=== PATIENT | female | born 1940 | race Caucasian/White ===

== ENCOUNTER → 2017-02-23 | Outpatient (CLI) | payer MEDICARE ==
--- NOTE | 2017-02-23 11:55 | RAD ---
Indication visual disturbance. Grayscale color Doppler and spectral imaging was performed. The examination was targeted to the carotid bifurcations. On the right there is no significant plaquing. The color Doppler images do not suggest significant turbulence. The common carotid waveform and velocities are normal. There is an elevated peak velocity of approximately 265 cm/s associated with the external carotid compatible with incidental stenosis in this vessel. The internal carotid waveform and velocities appear normal. The vertebral is patent and demonstrates normal directional flow. On the left there appears to be a graft at the bifurcation. Clinical correlation advised. The color Doppler images do not suggest significant turbulence. The common carotid waveform and velocities are normal. The external carotid has a normal appearance. The internal carotid waveform and velocities are borderline normal. The vertebral is patent and demonstrates normal directional flow. IMPRESSION: Graft at the left carotid bifurcation. No evidence of hemodynamically significant stenosis at either carotid bifurcation. Stenosis 0-50%. Note: Stenosis calculations for CT, MR and conventional angiography are based upon determination of the distal ICA diameter in accordance with the NASCET methodology. Stenosis calculations for doppler studies are derived from validated velocity criteria which are known to correlate with NASCET methodology of determining stenosis.
== END | disposition home or self-care (01) ==
LOC: US 10:45
PROVIDERS: ATTEND Physician Assistant Medical
DX: H53.2 Diplopia (principal); Z95.828 Presence of other vascular implants and grafts
CPT/HCPCS: 93880

== ENCOUNTER → 2017-03-10 | Outpatient (CLI) | payer MEDICARE ==
[2017-03-10 11:20] LABS: BASO % 0 % (0-3); EOS # 0.3 x10^3/uL (0.0-0.7); EOS % 4 % (0-3); HEMATOCRIT 40.6 % (36.0-47.0); HEMOGLOBIN 13.2 g/dL (12.0-15.5); LYMPH # 1.6 x10^3/uL (1.0-4.8); LYMPH % 24 % (24-48); MEAN CORPUSCULAR HEMOGLOBIN 30 pg (25-35); MEAN CORPUSCULAR HGB CONC 33 g/dL (31-37); MEAN CORPUSCULAR VOLUME 93 fL (79-100); MONO # 0.8 x10^3/uL (0.0-1.1); MONO % 12 % (0-9); NEUT # 3.9 x10^3uL (1.8-7.7); NEUT % 59 % (31-73); PLATELET COUNT 138 x10^3/uL (140-400); RED BLOOD COUNT 4.36 x10^6/uL (3.50-5.40); RED CELL DISTRIBUTION WIDTH 13.2 % (11.5-14.5); WHITE BLOOD COUNT 6.6 x10^3/uL (4.0-11.0)
[2017-03-10 11:29] LABS: ALBUMIN 3.6 g/dL (3.4-5.0); CALCIUM 9.1 mg/dL (8.5-10.1); CREATININE 1.3 mg/dL (0.6-1.0); GFR 39.7; PHOSPHORUS 4.1 mg/dL (2.6-4.7); POTASSIUM 5.4 mmol/L (3.5-5.1)
== END | disposition home or self-care (01) ==
LOC: LAB 10:01
PROVIDERS: ATTEND Internal Medicine Nephrology
DX: I12.9 Hypertensive chronic kidney disease with stage 1 through stage 4 chronic kidney disease, or unspecified chronic kidney disease (principal); N18.3 Chronic kidney disease, stage 3 (moderate); E11.21 Type 2 diabetes mellitus with diabetic nephropathy
CPT/HCPCS: 36415; 80069; 85027

== ENCOUNTER → 2017-09-09 | Outpatient (CLI) | payer MEDICARE ==
[2017-09-09 11:36] LABS: BASO % 0 % (0-3); EOS # 0.3 x10^3/uL (0.0-0.7); EOS % 4 % (0-3); HEMATOCRIT 39.7 % (36.0-47.0); HEMOGLOBIN 13.1 g/dL (12.0-15.5); LYMPH # 1.5 x10^3/uL (1.0-4.8); LYMPH % 23 % (24-48); MEAN CORPUSCULAR HEMOGLOBIN 31 pg (25-35); MEAN CORPUSCULAR HGB CONC 33 g/dL (31-37); MEAN CORPUSCULAR VOLUME 93 fL (79-100); MONO # 0.7 x10^3/uL (0.0-1.1); MONO % 11 % (0-9); NEUT % 62 % (31-73); PLATELET COUNT 157 x10^3/uL (140-400); RED BLOOD COUNT 4.27 x10^6/uL (3.50-5.40); RED CELL DISTRIBUTION WIDTH 12.7 % (11.5-14.5); WHITE BLOOD COUNT 6.5 x10^3/uL (4.0-11.0)
[2017-09-09 11:47] LABS: ALBUMIN 3.6 g/dL (3.4-5.0); CALCIUM 8.9 mg/dL (8.5-10.1); CREATININE 1.4 mg/dL (0.6-1.0); GFR 36.5; PHOSPHORUS 3.7 mg/dL (2.6-4.7); POTASSIUM 4.3 mmol/L (3.5-5.1)
[2017-09-09 21:11] LABS: CALCIUM PTH 9.4 mg/dL (8.7-10.3); CREATININE PTH 1.13 mg/dL (0.57-1.00); PTH INTACT 54 pg/mL (15-65)
== END | disposition home or self-care (01) ==
LOC: LAB 10:46
PROVIDERS: ATTEND Internal Medicine Nephrology
DX: I12.9 Hypertensive chronic kidney disease with stage 1 through stage 4 chronic kidney disease, or unspecified chronic kidney disease (principal); N18.3 Chronic kidney disease, stage 3 (moderate); E11.22 Type 2 diabetes mellitus with diabetic chronic kidney disease; E11.21 Type 2 diabetes mellitus with diabetic nephropathy; E87.5 Hyperkalemia
CPT/HCPCS: 36415; 80069; 83970; 85025

== ENCOUNTER → 2017-11-17 | Outpatient (CLI) | payer MEDICARE ==
--- NOTE | 2017-11-17 09:01 | RAD ---
Indication: Left hip pain for a few weeks. No known injury. Technique: 2 views of the left hip joint Comparison: Study from 05/09/2007. Findings: No acute fracture or dislocation. No hip joint space narrowing or productive changes. Impression: No acute findings.
--- NOTE | 2017-11-17 09:02 | RAD ---
Indication: Low back pain Technique: Multiple views of the lumbar spine Comparison: None Findings: There are 5 lumbar vertebral bodies. Lumbar spine is in normal anatomic alignment. No compression deformities. Mild multilevel intervertebral disc space narrowing noted with endplate sclerosis and small bony spurring compatible with degenerative disc disease. Mild to moderate lower lumbar spine facet arthropathy. SI joints within normal limits. Diffuse atherosclerotic disease of the abdominal aorta and bilateral iliac arteries. Impression: Multilevel mild to moderate degenerative disc disease with lower lumbar spine facet arthropathy.
== END | disposition home or self-care (01) ==
LOC: PMG 07:59
PROVIDERS: ATTEND Physician Assistant Medical
DX: M51.36 Other intervertebral disc degeneration, lumbar region (principal); I70.0 Atherosclerosis of aorta; I70.298 Other atherosclerosis of native arteries of extremities, other extremity
CPT/HCPCS: 72110; 73502

== ENCOUNTER → 2018-09-02 | Outpatient (CLI) | payer MEDICARE ==
[2018-09-02 15:51] LABS: BASO % 0 % (0-3); EOS # 0.3 x10^3/uL (0.0-0.7); EOS % 4 % (0-3); HEMATOCRIT 38.9 % (36.0-47.0); HEMOGLOBIN 12.9 g/dL (12.0-15.5); LYMPH # 2.4 x10^3/uL (1.0-4.8); LYMPH % 30 % (24-48); MEAN CORPUSCULAR HEMOGLOBIN 30 pg (25-35); MEAN CORPUSCULAR HGB CONC 33 g/dL (31-37); MEAN CORPUSCULAR VOLUME 91 fL (79-100); MONO # 0.9 x10^3/uL (0.0-1.1); MONO % 11 % (0-9); NEUT # 4.4 x10^3uL (1.8-7.7); NEUT % 55 % (31-73); PLATELET COUNT 155 x10^3/uL (140-400); RED BLOOD COUNT 4.27 x10^6/uL (3.50-5.40); RED CELL DISTRIBUTION WIDTH 13.4 % (11.5-14.5)
[2018-09-02 16:01] LABS: ALBUMIN 3.7 g/dL (3.4-5.0); CALCIUM 8.8 mg/dL (8.5-10.1); CREATININE 1.4 mg/dL (0.6-1.0); GFR 36.4; PHOSPHORUS 3.7 mg/dL (2.6-4.7); POTASSIUM 4.7 mmol/L (3.5-5.1)
[2018-09-03 03:09] LABS: CALCIUM PTH 9.2 mg/dL (8.7-10.3); CREATININE PTH 1.31 mg/dL (0.57-1.00); PTH INTACT 82 pg/mL (15-65)
== END | disposition home or self-care (01) ==
LOC: LAB 14:51
PROVIDERS: ATTEND Internal Medicine Nephrology
DX: E11.22 Type 2 diabetes mellitus with diabetic chronic kidney disease (principal); I12.9 Hypertensive chronic kidney disease with stage 1 through stage 4 chronic kidney disease, or unspecified chronic kidney disease; N18.3 Chronic kidney disease, stage 3 (moderate); D63.1 Anemia in chronic kidney disease; E11.21 Type 2 diabetes mellitus with diabetic nephropathy; R80.9 Proteinuria, unspecified
CPT/HCPCS: 36415; 80069; 82728; 83540; 83550; 83970; 85025

== ENCOUNTER 2018-10-30 03:03 | Emergency (ER) | payer MEDICARE ==
[~2018-10-30] VITALS: Ht 167.6 cm; Wt 63.5 kg
[2018-10-30] MEDS ORDERED: LIDOCAINE 2% TOPICAL JELLY 30GM TUBE. TP ONE (03:20)
[2018-10-30] MEDS ORDERED: LIDOCAINE 2% JELLY 10ML IN APPLICATOR. MM ONE (03:45)
--- NOTE | 2018-10-30 03:52 | PHYS DOC ---
Adult General Chief Complaint Chief Complaint Urinary retention HPI HPI 78 years old female presented to the emergency department with the urinary retention she stated at 10 PM she went to the bathroom she was able to urinate later on she was unable to didn't pass any urine upon arrival to the emergency Department a Griffin catheter placed and she drained 700 mL of bloody urine Review of Systems Review of Systems Constitutional: Denies fever or chills [] Eyes: Denies change in visual acuity, redness, or eye pain [] HENT: Denies nasal congestion or sore throat [] Respiratory: Denies cough or shortness of breath [] Cardiovascular: No additional information not addressed in HPI [] GI: Denies abdominal pain, nausea, vomiting, bloody stools or diarrhea [] : Denies dysuria Musculoskeletal: Denies back pain or joint pain [] Integument: Denies rash or skin lesions [] Neurologic: Denies headache, focal weakness or sensory changes [] Endocrine: Denies polyuria or polydipsia [] All other systems were reviewed and found to be within normal limits, except as documented in this note. Current Medications Current Medications Current Medications Medications (Trade) Dose Ordered Sig/Steve Start Time Stop Time Status Last Admin Dose Admin Ceftriaxone Sodium 1 gm/ Sodium Chloride 50 ml @ 100 mls/hr 1X ONCE 10/30/18 05:00 10/30/18 05:30 DC 10/30/18 04:50 100 MLS/HR Ceftriaxone Sodium (Rocephin) 1 gm STK-MED ONCE 10/30/18 04:34 10/30/18 04:36 DC Lidocaine HCl (Uro-Jet) 1 izzy 1X ONCE 10/30/18 03:45 10/30/18 03:48 DC 10/30/18 03:44 1 IZZY Lidocaine HCl (Xylocaine 2% Topical 30gm Tube) 30 izzy STK-MED ONCE 10/30/18 03:20 10/30/18 03:21 DC Sodium Chloride 50 ml @ As Directed STK-MED ONCE 10/30/18 04:34 10/30/18 04:36 DC Allergies Allergies Allergies Coded Allergies Type Severity Reaction Last Updated Verified No Known Drug Allergies 10/30/18 No Physical Exam Physical Exam Constitutional: Well developed, well nourished, no acute distress, non-toxic appearance. [] HENT: Normocephalic, atraumatic, bilateral external ears normal, oropharynx moist, no oral exudates, nose normal. [] Eyes: PERRLA, EOMI, conjunctiva normal, no discharge. [] Neck: Normal range of motion, no tenderness, supple, no stridor. [] Cardiovascular:Heart rate regular rhythm, no murmur [] Lungs & Thorax: Bilateral breath sounds clear to auscultation [] Abdomen: Bowel sounds normal, soft, no tenderness, no masses, no pulsatile masses. [] Skin: Warm, dry, no erythema, no rash. [] Back: No tenderness, no CVA tenderness. [] Extremities: No tenderness, no cyanosis, no clubbing, ROM intact, no edema. [] Neurologic: Alert and oriented X 3, normal motor function, normal sensory function, no focal deficits noted. [] Psychologic: Affect normal, judgement normal, mood normal. [] Current Patient Data Vital Signs Vital Signs Date Time Temp Pulse Resp B/P (MAP) Pulse Ox O2 Delivery O2 Flow Rate FiO2 10/30/18 03:21 97.5 76 18 97 Room Air Lab Results Laboratory Tests Test 10/30/18 03:30 10/30/18 04:15 Urine Collection Type U cath Urine Color Red Urine Clarity Cloudy Urine pH 7.0 Urine Specific [place] 1.015 Urine Protein >100 mg/dl (NEG-TRACE) Urine Glucose (UA) 250 mg/dL (NEG) Urine Ketones (Stick) 15 mg/dL (NEG) Urine Blood Large (NEG) Urine Nitrite Pos (NEG) Urine Bilirubin Neg (NEG) Urine Urobilinogen Dipstick 1 mg/dL (0.2 mg/dL) Urine Leukocyte Esterase Large (NEG) Urine RBC Tntc /HPF (0-2) Urine WBC 5-10 /HPF (0-4) Urine Squamous Epithelial Cells Occ /LPF Urine Bacteria Few /HPF (0-FEW) White Blood Count 5.8 x10^3/uL (4.0-11.0) Red Blood Count 4.17 x10^6/uL (3.50-5.40) Hemoglobin 12.5 g/dL (12.0-15.5) Hematocrit 37.9 % (36.0-47.0) Mean Corpuscular Volume 91 fL (79-100) Mean Corpuscular Hemoglobin 30 pg (25-35) Mean Corpuscular Hemoglobin Concent 33 g/dL (31-37) Red Cell Distribution Width 12.7 % (11.5-14.5) Platelet Count 149 x10^3/uL (140-400) Neutrophils (%) (Auto) 58 % (31-73) Lymphocytes (%) (Auto) 25 % (24-48) Monocytes (%) (Auto) 12 % (0-9) H Eosinophils (%) (Auto) 4 % (0-3) H Basophils (%) (Auto) 0 % (0-3) Neutrophils # (Auto) 3.4 x10^3uL (1.8-7.7) Lymphocytes # (Auto) 1.5 x10^3/uL (1.0-4.8) Monocytes # (Auto) 0.7 x10^3/uL (0.0-1.1) Eosinophils # (Auto) 0.2 x10^3/uL (0.0-0.7) Basophils # (Auto) 0.0 x10^3/uL (0.0-0.2) Prothrombin Time 10.9 SEC (9.4-11.4) Prothrombin Time INR 1.1 (0.9-1.1) PTT 25 SEC (23-33) Sodium Level 143 mmol/L (136-145) Potassium Level 4.2 mmol/L (3.5-5.1) Chloride Level 107 mmol/L (98-107) Carbon Dioxide Level 27 mmol/L (21-32) Anion Gap 9 (6-14) Blood Urea Nitrogen 28 mg/dL (7-20) H Creatinine 1.3 mg/dL (0.6-1.0) H Estimated GFR (Cockcroft-Gault) 39.6 BUN/Creatinine Ratio 22 (6-20) H Glucose Level 131 mg/dL (70-99) H Calcium Level 8.9 mg/dL (8.5-10.1) Total Bilirubin 0.6 mg/dL (0.2-1.0) Aspartate Amino Transferase (AST) 24 U/L (15-37) Alanine Aminotransferase (ALT) 30 U/L (14-59) Alkaline Phosphatase 67 U/L (46-116) Total Protein 6.7 g/dL (6.4-8.2) Albumin 3.4 g/dL (3.4-5.0) Albumin/Globulin Ratio 1.0 (1.0-1.7) EKG EKG [] Radiology/Procedures Radiology/Procedures [] Course & Med Decision Making Course & Med Decision Making Pertinent Labs and Imaging studies reviewed. (See chart for details) [] Final Impression Final Impression [] Problems: (1) Hematuria Qualifiers: Qualified Codes: R31.9 - Hematuria, unspecified (2) UTI (urinary tract infection) Dragon Disclaimer Dragon Disclaimer This electronic medical record was generated, in whole or in part, using a voice recognition dictation system. DEVANTE DICKINSON MD Oct 30, 2018 03:52
[2018-10-30 04:03] LABS: CLARITY,URINE CLOUDY; COLOR,URINE RED
[2018-10-30 04:04] LABS: BACTERIA,URINE FEW /HPF (0-FEW); BILIRUBIN,URINE NEG (NEG); GLUCOSE,URINE 250 mg/dL (NEG); NITRITE,URINE POS (NEG); RBC,URINE TNTC /HPF (0-2); SQUAMOUS EPITHELIAL CELL,UR OCC /LPF; UROBILINOGEN,URINE 1 mg/dL (0.2 mg/dL)
[2018-10-30] MEDS ORDERED: IV NORMAL SALINE 50ML 50 ML ONE (04:34)
[2018-10-30] MEDS ORDERED: cefTRIAXone SODIUM 1 GM VIAL IV ONE (04:34)
[2018-10-30 04:40] LABS: ALBUMIN 3.4 g/dL (3.4-5.0); CALCIUM 8.9 mg/dL (8.5-10.1); CREATININE 1.3 mg/dL (0.6-1.0); GFR 39.6; POTASSIUM 4.2 mmol/L (3.5-5.1); TOTAL BILIRUBIN 0.6 mg/dL (0.2-1.0); TOTAL PROTEIN 6.7 g/dL (6.4-8.2)
[2018-10-30 04:53] LABS: BASO % 0 % (0-3); EOS # 0.2 x10^3/uL (0.0-0.7); EOS % 4 % (0-3); HEMATOCRIT 37.9 % (36.0-47.0); HEMOGLOBIN 12.5 g/dL (12.0-15.5); LYMPH # 1.5 x10^3/uL (1.0-4.8); LYMPH % 25 % (24-48); MEAN CORPUSCULAR HEMOGLOBIN 30 pg (25-35); MEAN CORPUSCULAR HGB CONC 33 g/dL (31-37); MEAN CORPUSCULAR VOLUME 91 fL (79-100); MONO # 0.7 x10^3/uL (0.0-1.1); MONO % 12 % (0-9); NEUT # 3.4 x10^3uL (1.8-7.7); NEUT % 58 % (31-73); PLATELET COUNT 149 x10^3/uL (140-400); RED BLOOD COUNT 4.17 x10^6/uL (3.50-5.40); RED CELL DISTRIBUTION WIDTH 12.7 % (11.5-14.5); WHITE BLOOD COUNT 5.8 x10^3/uL (4.0-11.0)
[2018-10-30] MEDS ORDERED: IV NORMAL SALINE 1,000ML 1,000 ML IV ONE (05:00)
--- NOTE | 2018-10-30 05:17 | RAD ---
PQRS Compliance Statement: One or more of the following individualized dose reduction techniques were utilized for this examination: 1. Automated exposure control 2. Adjustment of the mA and/or kV according to patient size 3. Use of iterative reconstruction technique CT ABDOMEN PELVIS WO CONTRAST Clinical Indication: Hematuria since 9pm last night. Difficulty urinating. Hx hysterectomy Comparison: None. Technique: Helical CT imaging of the abdomen and pelvis is performed without IV or oral contrast. Findings: There is mild atelectasis or scarring in the lung bases. Cardiac size normal. Calcified granulomas in the spleen. Severe atherosclerotic calcification of the abdominal aorta, no aneurysm. Liver, gallbladder, pancreas, and adrenal glands are normal. There is a 1.9 cm right upper pole renal cyst. Tiny calculus versus vascular calcification in the lower pole of the left kidney. No hydronephrosis. No ureteral calculus. Stomach unremarkable. No dilated small bowel. Moderate distal colon diverticulosis. No colon wall thickening. The appendix is normal. No abdominal adenopathy or free fluid. There is Griffin catheter in urinary bladder which is decompressed. Uterus unremarkable. No pelvic free fluid. Small old compression deformity at the superior endplate of L4. Vacuum disc phenomenon L3/L4. IMPRESSION: 1. Decompressed urinary bladder contains Griffin catheter. Evaluation is limited. 2. There is no obstructive uropathy. 3. Moderate distal colon diverticulosis without diverticulitis. Electronically signed by: Jesus Alberto Contreras MD (10/30/2018 5:13 AM) [facility]
[2018-10-30] MEDS ORDERED: CIPR500T94 PO (06:13)
[2018-10-30 06:20] VITALS: BP 135/76
[2018-10-31] MEDS ORDERED: FLUC150T PO (16:40)
== END 2018-10-30 06:26 | disposition home or self-care (01) ==
LOC: ER 03:03
DX: N39.0 Urinary tract infection, site not specified (principal); R31.9 Hematuria, unspecified
CPT/HCPCS: 36415; 51702; 74176; 80053; 81001; 85025; 85610; 85730; 87086; 96365; 99284; J0696; J7030

== ENCOUNTER 2018-10-31 15:52 | Emergency (ER) | payer MEDICARE ==
[~2018-10-31] VITALS: Ht 167.6 cm; Wt 63.5 kg
[~2018-10-31 15:52] MED LIST: CIPR500T94 PO
[2018-10-31] MEDS ORDERED: FLUC150T PO (16:40)
--- NOTE | 2018-10-31 16:40 | PHYS DOC ---
Past History Past Medical History: Diabetes Past Surgical History: Alcohol Use: None Drug Use: None Adult General Chief Complaint Chief Complaint: URINE CATHETER PROBLEM [facility] HPI Patient is a 78-year-old female who presents with complaint of inability to drain her bladder. Patient was seen last night and diagnosed with urinary tract infection. Patient had a Griffin catheter placed because she was having urinary retention at that time and states that her bladder had been emptying her of the night but today she stopped seeing urine in the bag. She is now complaining of a lot of suprapubic discomfort. She denies any fever, nausea or vomiting. Review of Systems Review of Systems Constitutional: Denies fever or chills [] Respiratory: Denies cough or shortness of breath [] Cardiovascular: No additional information not addressed in HPI [] GI: Positive suprapubic pain without nausea or vomiting [] : As of urinary retention[] Allergies Allergies Allergies Coded Allergies Type Severity Reaction Last Updated Verified No Known Drug Allergies 10/30/18 No Physical Exam Physical Exam Constitutional: Well developed, well nourished, no acute distress, non-toxic appearance. [] Neck: Normal range of motion, no tenderness, supple, no stridor. [] Cardiovascular: Regular rate and rhythm, no murmur [] Lungs & Thorax: Bilateral breath sounds clear to auscultation [] Abdomen: Bowel sounds normal, soft, no tenderness. [] EKG EKG [] Radiology/Procedures Radiology/Procedures [] Course & Med Decision Making Course & Med Decision Making Pertinent Labs and Imaging studies reviewed. (See chart for details) Patient moved to room upon arrival was evaluated by ER nurse and nurse had drained the balloon at the end of the catheter and removed catheter with plan to reinsert however patient was able to urinate without difficulty at that point. Patient has urinated nearly a liter of clear yellow urine without difficulty since catheter removed and patient requesting catheter not be inserted. Dragon Disclaimer Dragon Disclaimer This electronic medical record was generated, in whole or in part, using a voice recognition dictation system. Departure Departure: Impression: Primary Impression: Obstructed Griffin catheter Disposition: 01 HOME, SELF-CARE Condition: STABLE Referrals: HASEEB BELTRAN (PCP) Patient Instructions: Urinary Tract Infection Scripts Fluconazole (DIFLUCAN) 150 Mg Tablet 1 TAB PO ONCE for infection, #1 TAB 1 Refill Prov: HARDEEP MAO Jr. DO 10/31/18 Problem Qualifiers Primary Impression: Obstructed Griffin catheter Encounter type: initial encounter Qualified Codes: T83.091A - Other mechanical complication of indwelling urethral catheter, initial encounter HARDEEP MAO Jr. DO Oct 31, 2018 16:40
[2018-10-31 16:55] VITALS: BP 150/72
== END 2018-10-31 16:55 | disposition home or self-care (01) ==
LOC: ER 15:52
DX: T83.091A Other mechanical complication of indwelling urethral catheter, initial encounter (principal); R33.9 Retention of urine, unspecified
CPT/HCPCS: 51701; 99283

== ENCOUNTER → 2019-02-25 | Outpatient (CLI) | payer MEDICARE ==
[~2019-02-25] MED LIST changes: +FLUC150T PO
[2019-02-25 11:04] LABS: BASO % 0 % (0-3); EOS # 0.2 x10^3/uL (0.0-0.7); EOS % 3 % (0-3); HEMATOCRIT 37.1 % (36.0-47.0); HEMOGLOBIN 12.1 g/dL (12.0-15.5); LYMPH # 1.3 x10^3/uL (1.0-4.8); LYMPH % 26 % (24-48); MEAN CORPUSCULAR HEMOGLOBIN 30 pg (25-35); MEAN CORPUSCULAR HGB CONC 33 g/dL (31-37); MEAN CORPUSCULAR VOLUME 91 fL (79-100); MONO # 0.6 x10^3/uL (0.0-1.1); MONO % 11 % (0-9); NEUT % 60 % (31-73); PLATELET COUNT 147 x10^3/uL (140-400); RED BLOOD COUNT 4.06 x10^6/uL (3.50-5.40); WHITE BLOOD COUNT 5.1 x10^3/uL (4.0-11.0)
[2019-02-25 11:11] LABS: ALBUMIN 3.4 g/dL (3.4-5.0); CALCIUM 8.7 mg/dL (8.5-10.1); CREATININE 1.4 mg/dL (0.6-1.0); GFR 36.3; MAGNESIUM 2.1 mg/dL (1.8-2.4); PHOSPHORUS 4.9 mg/dL (2.6-4.7); POTASSIUM 5.3 mmol/L (3.5-5.1)
[2019-02-25 17:07] LABS: CALCIUM PTH 8.8 mg/dL (8.7-10.3); CREATININE PTH 1.34 mg/dL (0.57-1.00); PTH INTACT 36 pg/mL (15-65); TOTAL SERUM CREATININE 1.34 mg/dL (0.57-1.00); TOTAL URINE CREATININE 37.5 mg/dL (Not Estab.); UR PROTEIN 22.8 mg/dL (Not Estab.)
== END | disposition home or self-care (01) ==
LOC: LAB 09:46
PROVIDERS: ATTEND Nurse Practitioner Family
DX: I12.9 Hypertensive chronic kidney disease with stage 1 through stage 4 chronic kidney disease, or unspecified chronic kidney disease (principal); E11.22 Type 2 diabetes mellitus with diabetic chronic kidney disease; N18.3 Chronic kidney disease, stage 3 (moderate); E11.21 Type 2 diabetes mellitus with diabetic nephropathy; D63.1 Anemia in chronic kidney disease; R80.9 Proteinuria, unspecified
CPT/HCPCS: 36415; 80069; 82575; 83735; 83970; 84156; 85025

== ENCOUNTER → 2019-04-28 | Outpatient (CLI) | payer MEDICARE ==
--- NOTE | 2019-04-28 16:58 | RAD ---
Examination: Ultrasound kidneys HISTORY: History of urinary tract infection, hematuria COMPARISON: None available. FINDINGS: The right kidney measures 8.8 x 4.3 x 3.8 cm. The left kidney measures 10.8 x 5.2 x 5.0 cm. There is a 1.9 cm cyst identified in the left kidney. No evidence of hydronephrosis. The urinary bladder is mildly distended. Within the urinary bladder , there is a 2.6 x 2.4 x 2.4 cm solid-appearing echogenicity abutting the wall of the posterior urinary bladder with vascular flow within suspicious for a mass. IMPRESSION: 1. 2.6 cm mass identified in the urinary bladder suspicious for neoplasm. Recommend cystoscopic evaluation and urological consult. 2. 1.9 cm left renal cyst. Electronically signed by: Daniel Zhang MD (04/28/2019 4:55 PM) [place] [id number]
== END | disposition home or self-care (01) ==
LOC: US 10:48
PROVIDERS: ATTEND Physician Assistant Medical
DX: N28.1 Cyst of kidney, acquired (principal); N32.89 Other specified disorders of bladder
CPT/HCPCS: 76770

== ENCOUNTER → 2019-05-19 | Outpatient (CLI) | payer MEDICARE ==
[~2019-05-19] MED LIST changes: +IOHEXOL 300 MG/ML 75 ML VIAL. IV ONE
[2019-05-19 09:34] LABS: CREATININE 1.3 mg/dL (0.6-1.0); GFR 39.5
--- NOTE | 2019-05-19 17:04 | RAD ---
CT scan of the abdomen and pelvis without and with contrast 05/19/2019 CLINICAL HISTORY: Bladder cancer. TECHNIQUE: Unenhanced, contiguous, 3 mm axial sections were obtained through the abdomen and pelvis. After the intravenous administration of 60 cc of Omnipaque 300, contiguous, 5 mm axial sections were obtained through the abdomen and pelvis. 5 minute delayed axial images through the abdomen and pelvis were obtained. One or more of the following individualized dose reduction techniques were utilized for this study: 1. Automated exposure control. 2. Adjustment of the mA and/or kV according to patient size. 3. Use of iterative reconstruction technique. FINDINGS: Comparison is made to the patient's renal ultrasound dated 04/28/2019. Additional comparison is made to the patient's CT scan of the abdomen and pelvis dated 10/30/2018. The unenhanced images demonstrate no renal or ureteral calculus. No bladder calculus is seen. Images through the lung bases demonstrate mild cardiomegaly. Minimal dependent subsegmental atelectasis is seen bilaterally. The liver parenchyma has a decreased attenuation consistent with mild fatty infiltration. No focal abnormality of the liver is seen. Calcified granulomas are seen involving the spleen. The pancreas and adrenal glands are within normal limits. The right kidney is within normal limits. A 1.9 cm rounded low-attenuation lesion is seen involving the superior pole of the left kidney. This corresponds to a cyst seen on ultrasound. Moderate atherosclerotic calcification of the abdominal aorta and its branches is seen. The abdominal aorta tapers normally. The gallbladder is contracted. No free fluid or free air is seen within the abdomen. There is no evidence of bowel obstruction. No retroperitoneal lymphadenopathy is noted. The appendix is well-visualized and is within normal limits. Images through the pelvis demonstrate the urinary bladder to be contracted. The urinary bladder has a a diffusely thickened wall. Irregularity is seen involving the superior aspect of the urinary bladder. Fluid and small collections of extraluminal air are seen immediately superior to the urinary bladder anterior to the peritoneum which measures 6.1 x 4.6 x 1.8 cm in size. This is presumably related to a recent surgical procedure involving the urinary bladder. Clinical correlation is recommended. The patient's bladder cancer is not definitely visualized. No extravasation of contrast is seen on the delayed images through the bladder. No free fluid is seen within the pelvis. Multiple diverticula are seen involving the sigmoid colon. No inflammatory changes are seen adjacent fat. No pelvic or inguinal lymphadenopathy is seen. Degenerative changes are seen involving lower thoracic and throughout the lumbar spine along with both hips. IMPRESSION: 1. Irregularity of the superior aspect of the urinary bladder is seen. Fluid and small collections of air are seen extending superiorly from the urinary bladder as discussed above. These findings are presumably related to the recent surgical procedure. Clinical correlation is recommended. No extravasation of contrast from the urinary bladder is seen. 2. There is no CT evidence of metastatic disease involving the abdomen and pelvis. Electronically signed by: Emmanuel Lemons MD (05/19/2019 5:01 PM) [place] [id number]
== END | disposition home or self-care (01) ==
LOC: CT 08:35
PROVIDERS: ATTEND Urology
DX: K57.30 Diverticulosis of large intestine without perforation or abscess without bleeding (principal); J98.11 Atelectasis; K76.0 Fatty (change of) liver, not elsewhere classified; N28.9 Disorder of kidney and ureter, unspecified; I70.0 Atherosclerosis of aorta; C67.0 Malignant neoplasm of trigone of bladder
CPT/HCPCS: 36415; 74178; 82565; Q9967

== ENCOUNTER → 2019-09-02 | Outpatient (CLI) | payer MEDICARE ==
[~2019-09-02] MED LIST changes: -IOHEXOL 300 MG/ML 75 ML VIAL. IV ONE
[2019-09-02 11:09] LABS: BASO % 0 % (0-3); EOS # 0.2 x10^3/uL (0.0-0.7); EOS % 4 % (0-3); HEMOGLOBIN 12.6 g/dL (12.0-15.5); LYMPH # 1.4 x10^3/uL (1.0-4.8); LYMPH % 25 % (24-48); MEAN CORPUSCULAR HEMOGLOBIN 30 pg (25-35); MEAN CORPUSCULAR HGB CONC 32 g/dL (31-37); MEAN CORPUSCULAR VOLUME 91 fL (79-100); MONO # 0.7 x10^3/uL (0.0-1.1); MONO % 12 % (0-9); NEUT # 3.3 x10^3uL (1.8-7.7); NEUT % 59 % (31-73); PLATELET COUNT 125 x10^3/uL (140-400); RED BLOOD COUNT 4.28 x10^6/uL (3.50-5.40); RED CELL DISTRIBUTION WIDTH 13.2 % (11.5-14.5); WHITE BLOOD COUNT 5.6 x10^3/uL (4.0-11.0)
[2019-09-02 11:15] LABS: ALBUMIN 3.4 g/dL (3.4-5.0); CALCIUM 8.9 mg/dL (8.5-10.1); CREATININE 1.2 mg/dL (0.6-1.0); GFR 43.3; PHOSPHORUS 4.1 mg/dL (2.6-4.7); POTASSIUM 4.8 mmol/L (3.5-5.1)
[2019-09-03 00:11] LABS: CALCIUM PTH 9.1 mg/dL (8.7-10.3); CREATININE PTH 0.95 mg/dL (0.57-1.00); PTH INTACT 38 pg/mL (15-65)
== END | disposition home or self-care (01) ==
LOC: LAB 10:16
PROVIDERS: ATTEND Internal Medicine Nephrology
DX: I12.9 Hypertensive chronic kidney disease with stage 1 through stage 4 chronic kidney disease, or unspecified chronic kidney disease (principal); E11.22 Type 2 diabetes mellitus with diabetic chronic kidney disease; E11.21 Type 2 diabetes mellitus with diabetic nephropathy; N18.3 Chronic kidney disease, stage 3 (moderate); D63.1 Anemia in chronic kidney disease; R80.9 Proteinuria, unspecified
CPT/HCPCS: 36415; 80069; 83540; 83550; 83970; 85025

== ENCOUNTER → 2019-11-16 | Outpatient (CLI) | payer MEDICARE ==
--- NOTE | 2019-11-16 09:12 | RAD ---
EXAM: Left lower extremity venous Doppler sonogram. HISTORY: Pain and swelling. TECHNIQUE: Yang scale and color Doppler sonographic evaluation of the left lower extremity veins with spectral waveform analysis was performed. FINDINGS: There is normal color flow, normal compressibility and there are normal spectral waveforms in the common femoral, superficial femoral, popliteal, posterior tibial and greater saphenous veins. There is a popliteal cyst measuring 5.0 x 1.1 x 4.0 cm. IMPRESSION: 1. No Doppler evidence of lower extremity deep venous thrombosis. 2. 5.0 cm left Leary's cyst. Electronically signed by: Kenyatta Bangura MD (11/16/2019 9:09 AM) [place] [id number]
== END | disposition home or self-care (01) ==
LOC: US 07:57
PROVIDERS: ATTEND Physician Assistant Medical
DX: M71.22 Synovial cyst of popliteal space [Baker], left knee (principal); M79.652 Pain in left thigh
CPT/HCPCS: 93971

== ENCOUNTER → 2020-01-20 | Outpatient (CLI) | payer MEDICARE ==
[2020-01-20 13:19] LABS: BASO % 0 % (0-3); EOS # 0.2 x10^3/uL (0.0-0.7); EOS % 4 % (0-3); HEMATOCRIT 38.6 % (36.0-47.0); HEMOGLOBIN 12.5 g/dL (12.0-15.5); LYMPH # 1.7 x10^3/uL (1.0-4.8); LYMPH % 28 % (24-48); MEAN CORPUSCULAR HEMOGLOBIN 29 pg (25-35); MEAN CORPUSCULAR HGB CONC 32 g/dL (31-37); MEAN CORPUSCULAR VOLUME 91 fL (79-100); MONO # 0.8 x10^3/uL (0.0-1.1); MONO % 13 % (0-9); NEUT # 3.5 x10^3uL (1.8-7.7); NEUT % 56 % (31-73); PLATELET COUNT 125 x10^3/uL (140-400); RED BLOOD COUNT 4.24 x10^6/uL (3.50-5.40); RED CELL DISTRIBUTION WIDTH 13.3 % (11.5-14.5); WHITE BLOOD COUNT 6.3 x10^3/uL (4.0-11.0)
--- NOTE | 2020-01-20 13:36 | EKG ---
[address] [address] Test Date: 2020-01-20 Test Time: 12:28:22 Pat Name: EDEN SALEH Department: Room: Gender: F [employer] Floor Service Worker: : 1940 Requested By: STAFF NON Order Number: [id number] Reading MD: Measurements Intervals [place] Rate: 71 P: 39 DE: 142 QRS: -36 QRSD: 124 T: 71 QT: 430 QTc: 467 Interpretive Statements SINUS RHYTHM ABNORMAL LEFT AXIS DEVIATION QRS(T) CONTOUR ABNORMALITY CONSISTENT WITH ANTEROSEPTAL INFARCT AGE UNDETERMINED T ABNORMALITY IN HIGH LATERAL LEADS ABNORMAL ECG RI6.01 No previous ECG available for comparison
== END | disposition home or self-care (01) ==
LOC: EKG 12:07
PROVIDERS: ATTEND Anesthesiology
DX: Z01.818 Encounter for other preprocedural examination (principal); R94.31 Abnormal electrocardiogram [ECG] [EKG]
CPT/HCPCS: 36415; 85025; 93005

== ENCOUNTER → 2020-03-08 | Outpatient (CLI) | payer MEDICARE | END | disposition home or self-care (01) | LOC: LAB 11:02 | PROVIDERS: ATTEND Internal Medicine Nephrology | DX: N18.3 Chronic kidney disease, stage 3 (moderate) (principal) | CPT/HCPCS: 36415; 84132 ==

== ENCOUNTER → 2020-03-08 | Outpatient (CLI) | payer MEDICARE ==
[2020-03-08 12:00] LABS: ALBUMIN 3.1 g/dL (3.4-5.0); ALBUMIN/GLOBULIN RATIO 0.9 (1.0-1.7); CALCIUM 8.6 mg/dL (8.5-10.1); CREATININE 1.9 mg/dL (0.6-1.0); GFR 25.4; POTASSIUM 5.5 mmol/L (3.5-5.1); TOTAL BILIRUBIN 0.6 mg/dL (0.2-1.0); TOTAL PROTEIN 6.7 g/dL (6.4-8.2)
== END | disposition home or self-care (01) ==
LOC: LAB 10:52
PROVIDERS: ATTEND Nurse Practitioner
DX: E78.00 Pure hypercholesterolemia, unspecified (principal)
CPT/HCPCS: 36415; 80053; 80061

== ENCOUNTER → 2020-03-19 | Outpatient (CLI) | payer MEDICARE ==
[2020-03-19 14:58] LABS: BASO % 0 % (0-3); EOS # 0.1 x10^3/uL (0.0-0.7); EOS % 3 % (0-3); HEMATOCRIT 35.5 % (36.0-47.0); HEMOGLOBIN 11.3 g/dL (12.0-15.5); LYMPH # 0.9 x10^3/uL (1.0-4.8); LYMPH % 34 % (24-48); MEAN CORPUSCULAR HEMOGLOBIN 29 pg (25-35); MEAN CORPUSCULAR HGB CONC 32 g/dL (31-37); MEAN CORPUSCULAR VOLUME 91 fL (79-100); MONO # 0.1 x10^3/uL (0.0-1.1); MONO % 2 % (0-9); NEUT # 1.6 x10^3uL (1.8-7.7); NEUT % 61 % (31-73); PLATELET COUNT 91 x10^3/uL (140-400); RED BLOOD COUNT 3.92 x10^6/uL (3.50-5.40); RED CELL DISTRIBUTION WIDTH 13.6 % (11.5-14.5); WHITE BLOOD COUNT 2.6 x10^3/uL (4.0-11.0)
[2020-03-19 15:02] LABS: ALBUMIN 3.1 g/dL (3.4-5.0); CALCIUM 8.4 mg/dL (8.5-10.1); CREATININE 1.8 mg/dL (0.6-1.0); GFR 27.1; PHOSPHORUS 3.8 mg/dL (2.6-4.7); POTASSIUM 4.6 mmol/L (3.5-5.1)
[2020-03-20 08:08] LABS: CALCIUM PTH 8.3 mg/dL (8.7-10.3); PTH INTACT 47 pg/mL (15-65)
[2020-03-20 11:07] LABS: TOTAL SERUM CREATININE 1.68 mg/dL (0.57-1.00); TOTAL URINE CREATININE 30.7 mg/dL (Not Estab.)
== END | disposition home or self-care (01) ==
LOC: LAB 14:02
PROVIDERS: ATTEND Nurse Practitioner Adult Health
DX: I12.9 Hypertensive chronic kidney disease with stage 1 through stage 4 chronic kidney disease, or unspecified chronic kidney disease (principal); E11.22 Type 2 diabetes mellitus with diabetic chronic kidney disease; D63.1 Anemia in chronic kidney disease; N18.3 Chronic kidney disease, stage 3 (moderate); E11.21 Type 2 diabetes mellitus with diabetic nephropathy; R80.9 Proteinuria, unspecified
CPT/HCPCS: 36415; 80069; 82306; 82575; 82728; 83540; 83550; 83970; 84156; 85025

== ENCOUNTER → 2020-06-18 | Outpatient (CLI) | payer MEDICARE ==
[2020-06-18 10:46] LABS: BASO % 0 % (0-3); EOS # 0.1 x10^3/uL (0.0-0.7); EOS % 1 % (0-3); HEMOGLOBIN 12.6 g/dL (12.0-15.5); LYMPH # 1.5 x10^3/uL (1.0-4.8); LYMPH % 19 % (24-48); MEAN CORPUSCULAR HEMOGLOBIN 32 pg (25-35); MEAN CORPUSCULAR HGB CONC 32 g/dL (31-37); MEAN CORPUSCULAR VOLUME 99 fL (79-100); MONO # 0.8 x10^3/uL (0.0-1.1); MONO % 10 % (0-9); NEUT # 5.5 x10^3uL (1.8-7.7); NEUT % 69 % (31-73); PLATELET COUNT 140 x10^3/uL (140-400); RED BLOOD COUNT 3.96 x10^6/uL (3.50-5.40); RED CELL DISTRIBUTION WIDTH 19.3 % (11.5-14.5)
[2020-06-18 11:03] LABS: ALBUMIN 3.6 g/dL (3.4-5.0); CALCIUM 9.2 mg/dL (8.5-10.1); CREATININE 1.4 mg/dL (0.6-1.0); GFR 36.2; PHOSPHORUS 4.3 mg/dL (2.6-4.7)
[2020-06-18 21:06] LABS: CALCIUM PTH 9.4 mg/dL (8.7-10.3); PTH INTACT 48 pg/mL (15-65)
== END | disposition home or self-care (01) ==
LOC: LAB 10:09
PROVIDERS: ATTEND Internal Medicine Nephrology
DX: C67.9 Malignant neoplasm of bladder, unspecified (principal); D63.1 Anemia in chronic kidney disease; I12.9 Hypertensive chronic kidney disease with stage 1 through stage 4 chronic kidney disease, or unspecified chronic kidney disease; N18.3 Chronic kidney disease, stage 3 (moderate); E11.22 Type 2 diabetes mellitus with diabetic chronic kidney disease; E11.21 Type 2 diabetes mellitus with diabetic nephropathy
CPT/HCPCS: 36415; 80069; 83540; 83550; 83970; 85025

== ENCOUNTER → 2020-09-17 | Outpatient (CLI) | payer MEDICARE ==
--- NOTE | 2020-09-17 16:28 | RAD ---
Chest radiograph 09/17/2020 12:00 AM INDICATION: Cough COMPARISON: 10/13/2016 TECHNIQUE: Frontal and lateral views of the chest are provided. FINDINGS: The cardiomediastinal silhouette is within normal limits. Right chest wall infusion port catheter is identified with the distal tip projecting over the cavoatrial junction. Pulmonary emphysematous changes are suspected. Right apical pleural parenchymal scarring is noted. Mild subpleural interstitial changes are identified at the lung bases, left greater than right. No focal consolidative change. No pleural effusions, pulmonary vascular congestion or pneumothorax. No significant osseous abnormality is identified. IMPRESSION: COPD changes without acute cardiopulmonary process. Electronically signed by: Rose Shore MD (09/17/2020 4:25 PM) [id number]
== END ==
LOC: PMG 11:30
PROVIDERS: ATTEND Physician Assistant Medical
DX: J44.9 Chronic obstructive pulmonary disease, unspecified (principal); J98.4 Other disorders of lung
CPT/HCPCS: 71046

== ENCOUNTER → 2020-10-17 | Outpatient (CLI) | payer MEDICARE ==
--- NOTE | 2020-10-17 14:14 | RAD ---
Exam: CT abdomen/pelvis without intravenous contrast Indication: Abdominal pain Comparison: CT abdomen pelvis 01/19/2020 Technique: Helical CT imaging performed of the abdomen and pelvis without the use of intravenous contrast. Sagittal and coronal reformats were obtained. One or more of the following individualized dose reduction techniques were utilized for this examination: 1. Automated exposure control 2. Adjustment of the mA and/or kV according to patient size 3. Use of iterative reconstruction technique. Findings: Inherently limited evaluation without intravenous contrast. Lower chest: There is septal thickening in the lung bases. Heart is normal in size. The tip of a central venous catheter is seen in the right atrium. Liver: Unremarkable. Gallbladder/Biliary Tree: Unremarkable. Pancreas: Unremarkable. Spleen: There are calcified splenic granulomas. Adrenal Glands: Normal. Kidneys/Ureters/Bladder: There is a 1.7 cm simple cyst in the superior left renal pole. No hydronephrosis. There are surgical changes of cystectomy. Reproductive Organs: Uterus and ovaries are surgically absent. Stomach, small bowel, and colon: Mild circumferential wall thickening in the gastric antrum, nonspecific. No small bowel obstruction. There is sigmoid diverticulosis. Large volume stool. There are surgical changes of small bowel and an ileostomy. Vasculature: Severe calcified aortoiliac atherosclerosis. Lymph Nodes: There are enlarged external iliac chain and inguinal lymph nodes bilaterally. Peritoneum and retroperitoneum: Gas and fluid collection in the anterior peritoneum, difficult to measure. Bones and soft tissue: There is septic arthritis of the pubic symphysis with new bony erosions since 01/19/2020. There is a 3.1 x 1.9 x 2.7 cm gas and fluid collection extending anteriorly from the pubic symphysis and gas and fluid extending into the anterior perineum. Impression: 1. Septic arthritis of the pubic symphysis with 3.1 x 1.9 x 2.7 cm gas and fluid collection extending anteriorly from the joint, and gas and fluid collection extending into the anterior perineum. Evaluation is limited by lack of IV contrast. 2. Surgical changes of cystectomy, hysterectomy, and oophorectomy. Critical results discussed by Dr. Álvarez with Kenyatta Juarez, medical customer service representative for Dr. Fela manning at 1:50 PM on 10/17/2020. Electronically signed by: Ciarra Álvarez MD (10/17/2020 2:11 PM) [place] [id number]
== END ==
LOC: CT 09:37
PROVIDERS: ATTEND Physician Assistant Medical
DX: K57.30 Diverticulosis of large intestine without perforation or abscess without bleeding (principal); M00.9 Pyogenic arthritis, unspecified
CPT/HCPCS: 74176

== ENCOUNTER → 2020-12-05 | Outpatient (CLI) | payer MEDICARE ==
--- NOTE | 2020-12-05 15:35 | RAD ---
Exam: CT abdomen/pelvis without intravenous contrast Indication: Bladder cancer Comparison: CT abdomen pelvis 10/17/2020 Technique: Helical CT imaging performed of the abdomen and without contrast. Sagittal and coronal ref ormats were obtained. One or more of the following individualized dose reduction techniques were utilized for this examinat ion: 1. Automated exposure control 2. Adjustment of the mA and/or kV according to patient size 3. Use of iterative reconstruction technique. Findings: Lower chest: There are new small bilateral pleural effusions and increased septal thickening in the l radames bases. The heart is normal in size. Liver: Unremarkable. Gallbladder/Biliary Tree: Cholelithiasis. Pancreas: Normal. Spleen: No splenomegaly. There are calcified splenic granulomas. Adrenal Glands: Normal. Kidneys/Ureters/Bladder: Kidneys are normal in size. Is approximately 2 cm simple cyst in the superio r left renal pole is unchanged. No hydronephrosis or nephrolithiasis. There are surgical changes of c ystectomy and ileal conduit formation. Reproductive Organs: Uterus and ovaries are surgically absent. Stomach, small bowel, and colon: Stomach is normal. Surgical changes of the small bowel. No small bow el obstruction. There is sigmoid diverticulosis without acute diverticulitis. Vasculature: No abdominal aortic aneurysm. There is severe calcified aortoiliac atherosclerosis. Lymph Nodes: Unchanged bilateral external iliac chain lymph nodes. Prominent bilateral inguinal lymph nodes. Peritoneum and retroperitoneum: Trace stranding in the pelvis. No ascites. No free air. Bones: Erosions of the pubic symphysis are unchanged. The gas and fluid collection extending from the pubic symphysis has resolved or near completely resolved. There are a few residual foci of gas but n o drainable collection. There is residual soft tissue thickening anterior inferior to the pubic symph ysis.. L4 compression fracture with mild height loss and no retropulsion of cortex is unchanged. Impression: 1. Resolution of gas and fluid collection extending from the pubic symphysis. There is a tiny residu al focus of gas just anterior inferior to the pubic symphysis but no drainable fluid collection. 2. New small pleural effusions and septal thickening in the lung bases suspicious for mild pulmonary edema. Electronically signed by: Ciarra Álvarez MD (12/05/2020 3:32 PM) [id number]
== END ==
LOC: CT 10:09
PROVIDERS: ATTEND Urology
DX: K57.30 Diverticulosis of large intestine without perforation or abscess without bleeding (principal); J90 Pleural effusion, not elsewhere classified; D73.89 Other diseases of spleen; Z85.51 Personal history of malignant neoplasm of bladder
CPT/HCPCS: 74176

== ENCOUNTER → 2021-09-25 | Outpatient (CLI) | payer MEDICARE ==
--- NOTE | 2021-09-27 12:31 | RAD ---
BILATERAL DIGITAL SCREENING 2-D AND 3-D MAMMOGRAM 09/25/2021. INDICATION: Routine screening. COMPARISON: Prior study of 03/11/2019. Interpretation was made using CAD. FINDINGS: Breast Density: There are scattered areas of fibroglandular density. RIGHT BREAST: No suspicious masses, calcifications or areas of architectural distortion are seen. LEFT BREAST: No suspicious masses, calcifications or areas of architectural distortion are seen. IMPRESSION: 1. No imaging evidence of malignancy. ASSESSMENT: BI-RADS 1. Negative. RECOMMENDATION: Routine annual screening mammogram. The facility will notify the patient of the results via mail. Patient information will be entered int o the mammography reminder system with a target recall date for the next mammogram. A reminder letter will be generated by the facility. Electronically signed by: Shalom Denson Jr., MD (09/27/2021 12:28 PM) [id number]
== END ==
LOC: MAMMO 08:53
PROVIDERS: ATTEND Physician Assistant Medical
DX: Z12.31 Encounter for screening mammogram for malignant neoplasm of breast (principal)
CPT/HCPCS: 77063; 77067